=== PATIENT | male | born 1995 | race Caucasian/White ===

== ENCOUNTER 2023-06-19 06:55 | Emergency (ER) | payer OTHER ==
[~2023-06-19] VITALS: Ht 175.3 cm; Wt 108.9 kg
[2023-06-19 07:07] VITALS: BP 148/102; PULSE 91; RESP 18; TEMP 98.5; O2SAT 95
[2023-06-19] MEDS ORDERED: TAM75 PO (08:05)
[2023-06-19] MEDS ORDERED: BENZ200C4 PO (08:05)
[2023-06-19] MEDS ORDERED: OXYM20SP1 NS (08:05)
[2023-06-19] MEDS ORDERED: AZIT250T4 PO (08:05)
[2023-06-19 08:35] LABS: FLU A ANTIGEN POSITIVE (NEGATIVE); FLU B ANTIGEN NEGATIVE (NEGATIVE)
== END 2023-06-19 08:32 | disposition home or self-care (01) ==
LOC: MED 06:55
DX: J10.1 Influenza due to other identified influenza virus with other respiratory manifestations (principal); Z20.822 Contact with and (suspected) exposure to COVID-19; B34.9 Viral infection, unspecified; Z79.899 Other long term (current) drug therapy
CPT/HCPCS: 71045; 99284